=== PATIENT | female | born 1995 | race Caucasian/White ===

== ENCOUNTER → 2019-09-22 | Outpatient (CLI) | payer OTHER | LOC: LAB 09:22 | PROVIDERS: ATTEND Physician Assistant Medical | DX: R79.89 Other specified abnormal findings of blood chemistry (principal) ==

== ENCOUNTER → 2020-07-25 | Outpatient (CLI) | payer OTHER ==
--- NOTE | 2020-07-25 14:38 | Diagnostic Imaging Report ---
PROCEDURE: US Non-ob pelvis comp/trans. TECHNIQUE: Multiple realtime grayscale images were obtained of the pelvis in various projections endovaginally. Transabdominal imaging was also performed. INDICATION: Pelvic pain There are no prior studies available for comparison. The uterus is nongravid and not enlarged measuring 7.8 x 3.3 x 4.5 cm. The endometrial lining is not thickened measuring 5 mm. Within the endometrium in the body of the uterus there is an IUD. The IUD seems to be in good position. There is no focal mass involving the uterus to suggest a fibroid. Both ovaries were identified. There is good blood flow to each ovary and there is no sign of torsion. There is a 3.7 x 3.3 x 3.3 cm cyst associated with the left ovary. This cyst has a generally benign appearance. There are a few subcentimeter follicles arising from the right upper and there is a small amount of nonspecific free fluid adjacent to the right ovary. This could be related to recent rupture of a small cyst. There is no solid pelvic mass or abscess noted. IMPRESSION: 1. There is an IUD within the endometrial of the body of the uterus and the IUD seems to be good position. 2. There is a benign-appearing 3.3 x 3.3 x 3.3 cm cyst associated with the left ovary. A small amount of nonspecific free fluid is also seen associated with the right ovary. Dictated by: Dictated on workstation # [id number]
== END ==
LOC: RAD 11:46
PROVIDERS: ATTEND Obstetrics & Gynecology
DX: R10.2 Pelvic and perineal pain (principal)
CPT/HCPCS: 76830; 76856